=== PATIENT | male | born 1990 | race Caucasian/White ===

== ENCOUNTER 2017-12-02 11:20 | Emergency (ER) | payer BC ==
[~2017-12-02] VITALS: Ht 172.7 cm; Wt 73.5 kg
[~2017-12-02 11:20] MED LIST: AMOXICILLIN500 MG PO; ANAPROX DS550 MG PO; BACTRIM DS 8001 TA1 PO; DAYPRO600 M1 PO; FLEXERIL10 MG PO; FLEXERIL5 MG PO; MOTRIN800 MG PO; NKHM; PREDNICOT20 MG PO; TRAMADOL HCL50 MG PO; TYLENOL W/CODEI1 TA2 PO
[2017-12-02 11:50] LABS: BASO # 0.1 10*3/uL (0.0-0.1); BASO % 0.7 % (0.0-1.0); EOS # 0.1 10*3/uL (0.0-0.4); EOS % 1.6 % (1.0-4.0); HEMATOCRIT 52.9 % (42.0-52.0); HEMOGLOBIN 17.3 g/dl (14.0-18.0); LYMPH # 2.2 10*3/uL (1.3-4.4); LYMPH % 25.1 % (27.0-41.0); MEAN CELL VOLUME 89.7 fl (80.0-94.0); MEAN CORPUSCULAR HGB 29.3 pg (27.0-31.0); MEAN CORPUSCULAR HGB CONC 32.7 g/dl (33.0-37.0); MEAN PLATELET VOLUME 10.3 fl (9.6-12.3); MONO # 0.6 10*3/uL (0.1-1.0); MONO % 7.2 % (3.0-9.0); NEUT # 5.6 10*3/uL (2.3-7.9); NEUT % 65.2 % (47.0-73.0); PLATELET COUNT AUTOMATED 311 10*3/uL (130-400); RED CELL DISTRI WIDTH 12.7 % (0-14.5); WHITE BLOOD COUNT 8.6 10*3/uL (4.8-10.8)
[2017-12-02 12:08] LABS: ALBUMIN 4.4 gm/dl (3.1-4.5); ALKALINE PHOSPHATASE 104 U/L (45-117); BUN 11 mg/dl (7-24); CHLORIDE 105 mmol/L (98-107); CREATININE 1.24 mg/dL (0.70-1.30); POTASSIUM 3.9 mmol/L (3.5-5.1); SGOT/AST 70 IU/L (3-35); SGPT/ALT 140 U/L (12-78); SODIUM 140 mmol/L (136-145)
[2017-12-02 12:13] LABS: BILIRUBIN 2+ (NEGATIVE); BLOOD NEGATIVE (NEGATIVE); GLUCOSE NEGATIVE (NEGATIVE); KETONE TRACE (NEGATIVE); NITRITE POSITIVE (NEGATIVE); UROBILINOGEN >= 8.0 E.U./dl (0.2-1.0)
[2017-12-02 12:15] LABS: CLARITY SL CLOUDY (CLEAR); COLOR ORANGE (YELLOW); LEUKO ESTERASE NEGATIVE (NEGATIVE)
[2017-12-02 12:21] LABS: BACTERIA 1+; EPITHELIAL CELLS 0-2; MUCOUS 3+; RBC 0-2 rbc/hpf (0-2)
[2017-12-02] MEDS ORDERED: PYRIDIUM200 M1 PO (12:26)
[2017-12-02] MEDS ORDERED: SEPTDS PO (12:26)
== END 2017-12-02 20:44 | disposition home or self-care (01) ==
LOC: ED 11:20
PROVIDERS: Nurse Practitioner Family
DX: M54.5 Low back pain (principal); N39.0 Urinary tract infection, site not specified; R31.9 Hematuria, unspecified; V49.88XA Car occupant (driver) (passenger) injured in other specified transport accidents, initial encounter; Y93.89 Activity, other specified; Y92.828 Other wilderness area as the place of occurrence of the external cause; Y99.9 Unspecified external cause status

== ENCOUNTER 2018-04-27 14:49 | Emergency (ER) | payer BC ==
[~2018-04-27] VITALS: Ht 172.7 cm; Wt 86.2 kg
[~2018-04-27 14:49] MED LIST changes: +PYRIDIUM200 M1 PO; +SEPTDS PO
== END 2018-04-27 17:18 | disposition left against medical advice (07) ==
LOC: ED 14:49
DX: R22.0 Localized swelling, mass and lump, head (principal); R51 Headache; Z79.2 Long term (current) use of antibiotics

== ENCOUNTER 2022-11-24 16:36 | Emergency (ER) | payer SELFPAY ==
[~2022-11-24] VITALS: Ht 177.8 cm; Wt 99.8 kg
[2022-11-24] MEDS ORDERED: PREDNISONE50 MG PO (16:59)
== END 2022-11-24 17:17 | disposition home or self-care (01) ==
LOC: ED 16:36
DX: L23.7 Allergic contact dermatitis due to plants, except food (principal); Z88.8 Allergy status to other drugs, medicaments and biological substances